=== PATIENT | female | born 1945 ===

== ENCOUNTER 2020-09-16 15:00 | Outpatient (REF) | payer SELFPAY ==
[2020-09-16 15:31] LABS: Cholesterol 221 mg/dL
== END 2020-09-16 15:01 | disposition home or self-care (01) ==
LOC: HO.LNC 15:00
PROVIDERS: Visit Provider Pathology Anatomic Pathology & Clinical Pathology
DX: Z51.81 Encounter for therapeutic drug level monitoring (principal)
CPT/HCPCS: 82465